=== PATIENT | male | born 1980 | race Caucasian/White ===

== ENCOUNTER 2016-12-16 03:16 | Emergency (ER) | payer MEDICAID ==
[~2016-12-16] VITALS: Ht 170.2 cm; Wt 86.2 kg
[2016-12-16 03:50] VITALS: BP_SYST 145
--- NOTE | 2016-12-16 03:50 | NUR ---
Patient to ER bed 7 for evaluation. Side rails up. Report given to KATHARINE Prado
--- NOTE | 2016-12-16 03:50 | NUR ---
ER Dr. Polo at bedside examining patient.
--- NOTE | 2016-12-16 03:50 | NUR ---
Patient AOx4, able to follow command, arrived to ER for c/o anxiety. Patient in no acute respiratory distress. Patient states that he was taking Wellbutrin but psych MD Dc'd med because he is also on Remeron and since then has been having anxiety and feeling "lost". Patient in stable condition. Will continue to monitor.
[2016-12-16] MEDS ORDERED: MIRT30TA PO (03:52)
[2016-12-16 03:55] VITALS: BP_SYST 135
--- NOTE | 2016-12-16 03:55 | NUR ---
Patient given written and verbal discharge instructions and verbalizes understanding. ER MD discussed with patient the results and treatment provided. Patient in stable condition. ID arm band removed. Rx of Ativan given. Patient educated on anxiety and panic attack management and to follow up with PMD. Pain Scale 0/10 .Opportunity for questions provided and answered.
--- NOTE | 2016-12-16 04:12 | NUR ---
Marika tobar in [facility] - 12/16/16 at 0421 by [email or web address] Patient to ER bed 7 for evaluation. Side rails up.
== END 2016-12-16 03:55 | disposition home or self-care (01) ==
LOC: SED 03:16
DX: F41.8 Other specified anxiety disorders (principal); F43.0 Acute stress reaction; F17.200 Nicotine dependence, unspecified, uncomplicated
CPT/HCPCS: 99284

== ENCOUNTER 2017-05-28 02:55 | Emergency (ER) | payer MEDICAID ==
[~2017-05-28] VITALS: Ht 170.2 cm; Wt 79.4 kg
[~2017-05-28 02:55] MED LIST: MIRT30TA PO
[2017-05-28 03:17] VITALS: BP_SYST 111
[2017-05-28] MEDS ORDERED: NACL 0.9% 1,000 ML IV ONE (04:04)
[2017-05-28 04:10] LABS: BILIRUBIN,URINE 1+ (NEGATIVE); BLOOD, URINE NEGATIVE (NEGATIVE); CLARITY/URINE CLEAR (CLEAR); COLOR,URINE YELLOW (YELLOW); GLUCOSE,URINE TRACE (NEGATIVE); KETONES,URINE NEGATIVE (NEGATIVE); LEUKOCYTE ESTERASE ,URINE NEGATIVE (NEGATIVE); NITRITE, URINE NEGATIVE (NEGATIVE); PROTEIN URINE TRACE (NEGATIVE); UROBILINOGEN,URINE >=8 (0.2-1.0)
[2017-05-28 04:15] LABS: BACTERIA,URINE MODERATE /HPF (None Seen); RBC,URINE 0-3 /HPF (0-3); URINE AMORPHOUS PHOSPHATES 2+ /HPF (None Seen); WBC,URINE 0-3 /HPF (0-3)
[2017-05-28] MEDS ORDERED: KETOROLAC TROMETHAMINE 30 MG VIAL IVP ONE (04:15)
[2017-05-28 04:58] LABS: BASOPHILS % (AUTO) 0.4 % (0.0-2.0); EOSINOPHILS # (AUTO) 0.2 K/uL (0.0-0.4); EOSINOPHILS % (AUTO) 2.8 % (0.0-4.0); HEMATOCRIT 46.9 % (36-54); HEMOGLOBIN 15.2 g/dL (14.0-18.0); LYMPHOCYTES # (AUTO) 0.9 K/uL (1.0-5.5); LYMPHOCYTES % (AUTO) 13.6 % (20.5-51.5); MEAN CORPUSCULAR HEMOGLOBIN 29 pg (27-31); MEAN CORPUSCULAR HGB CONC 33 % (32-36); MEAN CORPUSCULAR VOLUME 90 fL (79.0-98.0); MONOCYTES # (AUTO) 0.5 K/uL (0.0-1.0); MONOCYTES % (AUTO) 7.3 % (1.7-9.3); NEUTROPHILS # (AUTO) 5.2 K/uL (1.8-7.7); NEUTROPHILS % (AUTO) 75.9 % (40.0-70.0); PLATELET COUNT (AUTO) 254 K/uL (130-430); RED BLOOD CELL COUNT(AUTO) 5.24 MIL/uL (4.2-6.2); RED CELL DISTRIBUTION WIDTH 13.6 % (9.0-15.0); WHITE BLOOD COUNT (AUTO) 6.8 K/uL (4.8-10.8)
[2017-05-28 05:11] LABS: ALBUMIN 4.2 g/dL (3.4-4.8); CALCIUM 8.9 mg/dL (8.4-11.0); CREATININE 0.87 mg/dL (0.55-1.30); POTASSIUM 3.6 mmol/L (3.5-5.1); TOTAL BILIRUBIN 2.4 mg/dL (0.0-1.0)
[2017-05-28 05:25] VITALS: BP_SYST 114
== END 2017-05-28 05:25 | disposition home or self-care (01) ==
LOC: SED 02:55
DX: K80.80 Other cholelithiasis without obstruction (principal)
CPT/HCPCS: 36415; 74176; 80053; 81000; 83690; 85025; 87086; 96361; 96374; 99285; J1885; J7030